=== PATIENT | male | born 1980 | race Caucasian/White ===

== ENCOUNTER 2021-06-13 12:38 | Emergency (ER) | payer OTHER, SELFPAY ==
[2021-06-13] MEDS ORDERED: Bacitracin 1 PK ONE (13:19)
[2021-06-13] MEDS ORDERED: Boostrix 0.5 ML (Tdap) VIAL ONE (13:19)
== END 2021-06-13 13:27 | disposition home or self-care (01) ==
LOC: MADERS 12:38
DX: S01.01XA Laceration without foreign body of scalp, initial encounter (principal); I10 Essential (primary) hypertension; Z79.899 Other long term (current) drug therapy; W22.8XXA Striking against or struck by other objects, initial encounter
CPT/HCPCS: 12002; 90471; 90715